=== PATIENT | male | born 1990 | race African-American/Black ===

== ENCOUNTER 2020-06-21 07:35 | Emergency (ER) | payer OTHER, SELFPAY ==
[2020-06-21] VITALS (8 sets, daily range): BP systolic 130–160; BP diastolic 61–84; PULSE 78–123; RESP 15–27; TEMP 36.1; O2SAT 96–99
--- NOTE | ~2020-06-21 | XR_ITS ---
EXAMINATION: XR chest 2V 06/21/2020 08:31 INDICATION: Chest pain PROCEDURE: 2 view chest COMPARISON: 08/04/2016 FINDINGS: The lungs are clear. The cardiomediastinal silhouette is within normal limits. There are no pleural effusions. There is no pneumothorax suspected. IMPRESSION: 1: NO ACUTE CARDIOPULMONARY DISEASE. Reviewed, dictated and finalized at location A. [facility]
--- NOTE | 2020-06-21 07:42 | ECG_ITS ---
Measurements Intervals [place] Rate: 96 P: 55 WI: 144 QRS: 113 QRSD: 95 T: 16 QT: 344 QTc: 435 Interpretive Statements SINUS RHYTHM POSSIBLE LEFT ATRIAL ENLARGEMENT RIGHT AXIS DEVIATION INCOMPLETE RIGHT BUNDLE BRANCH BLOCK NONSPECIFIC ST ELEVATION IN ANTEROLAT/HIGH LAT LEADS BORDERLINE ST-T WAVE ABNORMALITY- INFERIOR LEADS BORDERLINE ECG Electronically Signed On 06-21-2020 7:59:44 [employer] by Eliseo Miranda D.O.
--- NOTE | 2020-06-21 07:51 | ED.CHESTPAIN ---
HPI - Chest Pain General Chief Complaint: Chest Pain Stated Complaint: Chest & Back pain Time Seen by Provider: 06/21/20 07:38 Source: RN notes reviewed History of Present Illness HPI narrative: Patient presents to emergency department from work for left-sided chest and back pain. Patient states proximally 40 minutes ago at work he dropped his scissors and quickly tried to bend down to grab his scissors off the floor when he developed pain in his left side of his chest and back. States the pain is worse with bending and movement of the torso states he is taken no medication for the pain he denies any fevers or chills shortness of breath abdominal pain nausea vomiting or any other symptoms Related Data Allergies Allergy/AdvReac Type Severity Reaction Status Date / Time cinnamon Allergy Unknown Unknown Verified 06/21/20 07:48 coconut Allergy Unknown Unknown Verified 06/21/20 07:48 chocolate flavor Allergy Unknown Verified 06/21/20 07:48 strawberry Allergy Swelling Verified 06/21/20 07:48 of Lip/Tongue/Throat Review of Systems Review of Systems: Narrative: Gen.: Denies fevers or chills ENT: Denies congestion Respiratory: Denies shortness of breath or cough CV: Denies chest pain or palpitations GI: Denies abdominal pain nausea, emesis or diarrhea Musculoskeletal: Reports left upper back pain Neuro: Denies numbness, tingling, weakness or focal weakness Skin: Denies rash Except as documented, all other systems reviewed and negative [facility] Past Medical History Medical History (Updated 06/21/20 @ 11:15 by Derrick Amaro DO) Pulmonary hypertension Social History Social History (Updated 06/21/20 @ 07:53 by Derrick Amaro DO) Smoking status: Never smoker Gender identity (if verbalized by the patient): Male Exam Narrative: Exam Narrative: APPEARANCE: No acute distress, nontoxic, resting in bed EYES: EOMI HEENT: Normocephalic, atraumatic, OMM RESPIRATORY: No respiratory distress Clear to auscultation bilaterally with no rhonchi wheezing or rales. CARDIOVASCULAR: Regular rate and rhythm without murmurs rubs or gallops. Chest: Tender palpation of the left lateral chest and regions of ribs 8 through 10 the mid axillary line pain increased with deep inspiration movement of the torso ABDOMINAL: Soft, nontender, nondistended, no rebound or guarding MUSCULOSKELETAl: Moves all extremities. No clubbing, cyanosis or edema. Back: No midline thoracic lumbar tenderness palpation tender palpation over left paravertebral muscles T8-10 pain increased with forward flexion NEURO: Awake and alert. Following commands, speech normal, no focal deficits SKIN:: Warm, dry. No rashes lesions or abrasions PSYCHIATRIC: Normal affect/mood, Course Course Emergency Course: Patient states pain is resolved with Toradol Discussed with patient results of workup and diagnosis. Discussed need for follow-up with primary care, proper use of medication, and reasons to return to the emergency department. Patient understands and agrees to current treatment plan Vital Signs Vital signs: Vital Signs Temperature 97.0 F L 06/21/20 07:43 Pulse Rate 102 H 06/21/20 07:43 Respiratory Rate 18 06/21/20 07:43 Blood Pressure 145/84 H 06/21/20 07:43 Pulse Oximetry 98 06/21/20 07:43 Temperature 97.0 F L 06/21/20 07:43 Pulse Rate 78 06/21/20 09:01 Respiratory Rate 21 H 06/21/20 09:01 Blood Pressure 137/61 06/21/20 09:01 Pulse Oximetry 99 06/21/20 09:01 MDM - Chest Pain MDM Narrative Medical decision making narrative: Patient's EKGs and labs are without significant high risk changes. Cardiac risk factors reviewed. Patient is felt likely low risk for ACS and reasonable for further risk stratification testing as an outpatient. Pain was not sudden or maximal in onset without tearing or ripping quality. No other signs of symptoms suggest aortic dissection. A low-risk Wells criteria is noted, PE is felt to be unlikely. No pneumonia
[2020-06-21] MEDS: KETOROLAC 30 MG/ML VIAL (*BKC) IV PUSH (07:57)
[2020-06-21 08:07] LABS: Basophils Absolute Auto 0.1 K/mm3 (0.0-0.1); Basophils Percent Auto 0.8 % (0.2-1.2); Eosinophils Absolute Auto 0.1 K/mm3 (0-0.3); Eosinophils Percent Auto 0.8 % (0-4.4); Hematocrit 43.8 % (42.0-52.0); Hemoglobin 14.6 g/dL (14.0-18.0); Immature Granulocyte Absolute 0.02 K/mm3 (0.00-0.031); Immature Granulocyte Percent A 0.3 % (0-0.5); Lymphocytes Absolute Auto 2.32 K/mm3 (0.9-3.2); Lymphocytes Percent Auto 37.2 % (18.3-44.2); Mean Corpuscular HGB Conc 33.3 g/dl (32-36); Mean Corpuscular Hemoglobin 28.6 pg (26-34); Mean Corpuscular Volume 85.7 fl (80-100); Mean Platelet Volume 9.1 fl (7.4-10.4); Monocytes Absolute Auto 0.6 K/mm3 (0.1-0.6); Neutrophils Absolute Auto 3.2 K/mm3 (1.3-6.7); Neutrophils Percent Auto 51.9 % (45.5-73.1); Platelet Count Result 345 k/mm3 (150-375); Red Blood Count 5.11 M/mm3 (4.6-6.20); White Blood Count 6.2 K/mm3 (4.5-10.0)
[2020-06-21 08:17] LABS: Prothrombin Time 13.8 Seconds (11.1-14.7)
[2020-06-21 08:18] LABS: Partial Thromboplastin Time 27.8 SECONDS (22.3-36.8)
[2020-06-21 08:19] LABS: Anion Gap 5 mmol/L (8-16); Blood Urea Nitrogen 14 mg/dL (9-20); Calcium 9.5 mg/dL (8.4-10.2); Carbon Dioxide 32 mmol/L (22-30); Chloride 102 mmol/L (98-107); Estimated CRCL calculation 102 ml/min; Estimated Glomerular Filt Rate > 60; Glucose 113 mg/dL (75-110); Potassium 3.8 mmol/L (3.4-5.0); Sodium 139 mmol/L (137-145)
[2020-06-21 08:31] LABS: Troponin I < 0.012 ng/mL (0.000-0.034)
--- NOTE | 2020-06-21 08:37 | PC.NURSE ---
Pt refuses pain medication at this time
--- NOTE | 2020-06-21 11:10 | PC.NURSE ---
received report from Selene MCCORMICK. patient here with rib pain. no change in condition. waiting for discharge. on desk monitor. alert. oriented.
[2020-06-21 11:11] LABS: Troponin I < 0.012 ng/mL (0.000-0.034)
== END 2020-06-21 11:26 | disposition home or self-care (01) ==
PROVIDERS: Emergency Provider Emergency Medicine
DX: M54.6 Pain in thoracic spine (principal); R07.89 Other chest pain
CPT/HCPCS: 36415; 71046; 80048; 84484; 85025; 85610; 85730; 93005; 96374; 99284; J1885